=== PATIENT | female | born 1945 | race Caucasian/White ===

== ENCOUNTER 2016-11-28 12:04 | Inpatient (IN) | payer MEDICARE, OTHER ==
--- NOTE | ~2016-11-28 | CN ---
Consultation Report [facility] [address] [place]. [address] NAME: YURIY JONES : 45 STATUS : ADM IN [facility]#: [id number] AGE: 71 ADM/REG DATE : 11/28/16 MR#: [id number] REPORT SERV DATE: 11/29/16 DICTATED BY: PACO ALLEN DATE: 11/29/16 REPORT STATUS : Draft TRANSCRIBED BY: MODL DATE: 11/29/16 CONSULT DATE OF CONSULTATION: 11/28/2016 REASON FOR CONSULTATION: Postoperative critical care management. HISTORY OF PRESENT ILLNESS: The patient is a 71-year-old white female with a past medical history of COPD, anxiety, and depression, who initially presented to [facility] emergency room three days prior to this hospital admission complaining of a couple of days of worsening shortness of breath, right-sided pleuritic chest pain, as well as increasing cough with sputum production. In the emergency room there, she was hypoxic and was admitted to the ICU there for hypoxic respiratory failure. At that time, she underwent a chest CT that showed a moderate right-sided pleural effusion with areas of loculation and atelectasis consistent with at least a complicated parapneumonic effusion. A thoracentesis at that time evacuated approximately 600 mL of cloudy yellow fluid and the patient still had a residual loculated component following this thoracentesis. Cultures from that have grown Streptococcus pneumoniae, and the patient has been treated with Levaquin, Rocephin, and vancomycin since her hospital admission on 11/27/2016. The patient, given the residual loculation, was then transferred here for VATS with decortication, which she underwent earlier today by Dr. Montes De Oca without significant complication. He remarked that he evacuated the hemothorax of pus-like material. The patient developed some atrial fibrillation with rapid ventricular response and is now in CVICU on the ventilator. We are consulted for assistance in critical care management. PAST MEDICAL HISTORY: 1. COPD. 2. Anxiety. 3. Depression. 4. Hypertension. 5. Hyperlipidemia. 6. Gastroesophageal reflux disease. SOCIAL HISTORY: Per the chart, remote history of 40-pack plus year history. No alcohol or IV drug abuse. FAMILY HISTORY: Per the chart, significant for hypertension in her father and lung cancer in mother. ALLERGIES: INCLUDE PENICILLIN. HOME MEDICATIONS: See medication reconciliation form. REVIEW OF SYSTEMS: Consultation Report [facility] [address] [place]. [address] NAME: YURIY JONES : 45 STATUS : ADM IN PAT#: [id number] AGE: 71 ADM/REG DATE : 11/28/16 MR#: [id number] REPORT SERV DATE: 11/29/16 DICTATED BY: PACO ALLEN DATE: 11/29/16 REPORT STATUS : Draft TRANSCRIBED BY: MODL DATE: 11/29/16 Unable to obtain secondary to sedation and intubation. PHYSICAL EXAMINATION: VITAL SIGNS: Temperature 98.6, heart rate 94, respiratory rate 15, blood pressure 107/65. GENERAL: Sedated, intubated. HEENT: Pupils equal, round, and reactive to light. ET tube in place. NECK: Supple. Nontender. No lymphadenopathy. No thyromegaly. No jugular venous distention. LUNGS: Coarse breath sounds bilaterally. CARDIOVASCULAR: Regular rate and rhythm. No murmurs, rubs, or gallops. ABDOMEN: Soft, nontender, nondistended. Positive bowel sounds. No hepatosplenomegaly. EXTREMITIES: No cyanosis, clubbing, or edema. NEUROLOGIC: Alert and oriented x3. Cranial nerves intact. PSYCH: Mood appropriate. LABORATORIES AND IMAGING: Metabolic profile remarkable for glucose of 237. CBC with white count 24,000, hemoglobin 8.8, platelets of 447, 89% neutrophils, and 5% bands. ASSESSMENT AND PLAN: The patient is a 71-year-old female with past medical history of chronic obstructive pulmonary disease, hypertension, and anxiety, who is now postop day #0 from VATS with decortication, now with postoperative respiratory failure and atrial fibrillation with rapid ventricular response. 1. Postoperative respiratory failure. We will assist with ventilator management. I have switched the patient from SIMV to CMV and decreased the tidal volume. We will get a followup ABG in the morning. We will provide daily awakening trials while the patient is on the ventilator. We will provide sedation with Precedex and fentanyl as needed. We will hopefully attempt to wean and extubate in the next 24 to 48 hours. The patient does have a history of chronic obstructive pulmonary disease, so we will place on bronchodilator protocol. No signs of active chronic obstructive pulmonary disease exacerbation at this time. 2. Atrial fibrillation with rapid ventricular response. Currently, the patient has a good blood pressure and is tolerating her atrial fibrillation. We will place on amiodarone drip and get Cardiology to see the patient in the morning. 3. Empyema, now status post VATS with decortication. Routine postsurgical care per the primary team. 4. Appreciate the consult. We will continue to follow along with you. Please call if you have any questions. Total critical care time spent on this patient was 40 minutes. IMANI/PANCHO [place] Consultation Report [address] [address] NAME: YURIY JONES : 45 STATUS : ADM IN [facility]#: [id number] AGE: 71 ADM/REG DATE : 11/28/16 MR#: [id number] REPORT SERV DATE: 11/29/16 DICTATED BY: PACO ALLEN DATE: 11/29/16 REPORT STATUS : Draft TRANSCRIBED BY: PANCHO DATE: 11/29/16 MD Raoul / [id number] CC: Matthew Montes De Oca Jr., M.D.
--- NOTE | ~2016-11-28 | HP ---
History And Physical [address] [place]. [address] NAME: YURIY JONES : 45 STATUS : ADM IN [facility]#: [id number] AGE: 71 ADM/REG DATE : 11/28/16 MR#: [id number] REPORT SERV DATE: 11/28/16 DICTATED BY: MADDIE HAINES JR. DATE: 11/28/16 REPORT STATUS : Draft TRANSCRIBED BY: MODL DATE: 11/28/16 DATE OF ADMISSION: 11/28/2016 BRIEF HISTORY: This is a 71-year-old white female, who presented to [facility] Emergency Department on Sunday afternoon after several days of shortness of breath, right-sided chest discomfort with pleuritic type pain as well as a cough. In the emergency department, she was noted to be profoundly hypoxic and was transferred to the ICU. She underwent a CT of the chest, which demonstrated a moderate right-sided pleural effusion with a loculated component in the major and minor fissures of the right chest with associated bands of atelectasis. Cultures demonstrated this to be a strep pneumonia. The patient was placed on Levaquin, Rocephin, and vancomycin. She underwent a thoracentesis on 11/27/2016, where 600 mL of cloudy yellow fluid was drained with a residual loculated component following the procedure. Given the cultures and the patient's continued loculated component, we are asked to receive transfer of her for right thoracoscopy with decortication. PAST MEDICAL HISTORY: Significant for COPD, anxiety, depression, hypertension, hyperlipidemia, and GERD. SOCIAL HISTORY: Significant for previous tobacco use. She quit smoking approximately 15 years ago, but has a 40 pack-year history. She denies any alcohol or illicit drug use. SURGICAL HISTORY: Significant for hysterectomy. FAMILY HISTORY: Significant for father with hypertension and mother with history of lung cancer. ALLERGIES: TO MEDICATIONS INCLUDE PENICILLIN. HOME MEDICATIONS: Include atorvastatin 20 mg 1 p.o. daily, BuSpar 15 mg b.i.d., Cymbalta 90 mg daily, lisinopril 10 mg daily, omeprazole 40 mg daily. REVIEW OF SYSTEMS: Significant for shortness of breath and right-sided pleuritic pain. A complete 12-point review of systems was performed. All other systems are negative except for the above- mentioned pertinent positives in the history of present illness. PHYSICAL EXAMINATION: GENERAL: This is a 71-year-old white female, who is alert and oriented, in no acute distress. VITAL SIGNS: Afebrile, heart rate 110, blood pressure 136/78, oxygen saturation 88%. Weight 70 kg. HEENT: Normocephalic and atraumatic. Pupils equal, round, reactive to light. Ears, nose, and throat without lesions or exudate. NECK: Supple with no lymphadenopathy, JVD, or bruits. Trachea midline. No obvious goiter. CHEST: Symmetrical with no chest wall deformities. CARDIOVASCULAR: Regular rate and rhythm. S1, S2. No murmurs, rubs, or gallops. History And Physical [address] [address] NAME: YURIY JONES : 45 STATUS : ADM IN [facility]#: [id number] AGE: 71 ADM/REG DATE : 11/28/16 MR#: [id number] REPORT SERV DATE: 11/28/16 DICTATED BY: MADDIE HAINES JR. DATE: 11/28/16 REPORT STATUS : Draft TRANSCRIBED BY: PANCHO DATE: 11/28/16 RESPIRATORY: Decreased breath sounds bilaterally greater on the right. Expiratory wheezes. ABDOMEN: Soft, nontender, nondistended. Positive bowel sounds in all four quadrants. No hepatosplenomegaly. : The patient voids without difficulty. Further examination was deferred. MUSCULOSKELETAL: No obvious kyphosis or scoliosis. EXTREMITIES: No cyanosis or edema. 2+ pulses bilaterally. NEUROLOGIC: No focal neurological deficits. PSYCHIATRIC: Normal mood and affect. She is pleasant. DATA: CT of the chest dated 11/25/2016, showing a small to moderate right-sided pleural effusion with loculated component within the major and minor fissures and associated bands of atelectasis. There is minimal fluid within the left lung, large hiatal hernia, and the thoracic esophagus is dilated. Laboratories dated 11/27/2016, sodium 137, potassium 3.9, BUN 26, creatinine 0.77, glucose 84. Thoracentesis dated 11/27/2016, 600 mL of cloudy yellow fluid was drained from the right chest. PROBLEM LIST: 1. Right empyema positive for strep pneumonia. 2. COPD. 3. Hypoxemia. 4. Atrial fibrillation. 5. Hypertension. 6. Hyperlipidemia. 7. Anxiety and depression. 8. Gastroesophageal reflux disease. 9. History of tobacco abuse. IMPRESSION AND PLAN: This is a 71-year-old white female with a right empyema status post thoracentesis on 11/27/2016, and she remained hypoxic and recently converted to atrial fibrillation. We will go ahead and plan for right thoracoscopy as decortication occurred this afternoon. We discussed the plan with the patient. We discussed the risks, benefits, and expected outcomes of the above-mentioned procedure. She verbalized understanding of all that we discussed and we will proceed on as outlined above this afternoon. DICTATED BY: Jyoti Durbin NP AM/PANCHO Maddie Haines Jr., M.D. / [id number] CC: Maddie Haines Jr., M.D.
--- NOTE | ~2016-11-28 | OP ---
Record Of Operation [facility] [address] [place]. [address] NAME: YURIY JONES : 45 STATUS : ADM IN [facility]#: [id number] AGE: 71 ADM/REG DATE : 11/28/16 MR#: [id number] REPORT SERV DATE: 11/29/16 DICTATED BY: MADDIE MONTES DE OCA JR. DATE: 11/28/16 REPORT STATUS : Draft TRANSCRIBED BY: MODDaniel DATE: 11/28/16 DATE OF PROCEDURE: 11/28/2016 PREOPERATIVE DIAGNOSES: Streptococcal pneumonia with right empyema, anemia of chronic disease, large hiatal hernia with gastroesophageal reflux disease, hypertension, chronic obstructive pulmonary disease, atrial fibrillation. POSTOPERATIVE DIAGNOSES: Streptococcal pneumonia with right empyema, anemia of chronic disease, large hiatal hernia with gastroesophageal reflux disease, hypertension, chronic obstructive pulmonary disease. NAME OF OPERATION: Bronchoscopy, right thoracoscopy with complete decortication, intercostal nerve block. SURGEON: Maddie Montes De Oca M.D. RESIDENT SURGEON: Gentry Rivera. ASSIST: Armando Matos. ANESTHESIA: General endotracheal. FINDINGS: The patient was noted to have mucus secretions and plugs within her airway. There was obviously a pneumonia with purulent material coming from the right lung. Chest had a loculated empyema with a lot of purulent material within the chest cavity. It required a complete decortication. We were able to get the lung fully re-expanded. Cultures were sent. DETAILS OF OPERATION: After adequate general anesthesia, the patient was intubated. A bronchoscopy was performed noting no contraindication of resection. Mucus secretions were evacuated. A left-sided double-lumen endotracheal tube was then placed. She was then positioned in the left lateral decubitus position. The right chest was prepped and draped in the usual sterile fashion. A small incision was made overlying the lower intercostal space. Through a single incision site, the above findings were noted. The fluid was evacuated. The loculations were broken up. Decortication was then performed completing decortication in all three lobes. The fissures were and opened up. The purulent material in the chest wall was also debrided. The chest was then thoroughly irrigated with multiple liters of normal saline solution. An intercostal nerve block was then performed. Two straight 32-Vietnamese chest tubes were placed. The lung was reinflated. There was good reexpansion of the lung tissue. The single trocar site was closed with running Vicryl sutures. The skin was closed with running monofilament suture. A Dermabond dressing was applied and the procedure was terminated at this point. The patient tolerated the procedure well and taken back to intensive care unit intubated, but in stable condition. Record Of Operation [address] [place]. [address] NAME: YURIY JONES : 45 STATUS : ADM IN [facility]#: [id number] AGE: 71 ADM/REG DATE : 11/28/16 MR#: [id number] REPORT SERV DATE: 11/29/16 DICTATED BY: MADDIE MONTES DE OCA JR. DATE: 11/28/16 REPORT STATUS : Draft TRANSCRIBED BY: PANCHO DATE: 11/28/16 RADHA/PANCHO Maddie Montes De Oca Jr., M.D. / [id number] CC: Payal Bryant Jr., M.D.
--- NOTE | ~2016-11-28 | DS ---
Discharge Summary [facility] [address] [place]. [address] NAME: YURIY JONES : 45 STATUS : DIS IN PAT#: [id number] AGE: 71 ADM/REG DATE : 11/28/16 MR#: [id number] REPORT SERV DATE: 12/15/16 DICTATED BY: MADDIE MONTES DE OCA JR. DATE: 12/14/16 REPORT STATUS : Draft TRANSCRIBED BY: PANCHO DATE: 12/14/16 Data Collection from hospitalization DISCHARGE DIAGNOSIS(ES): 1. Streptococcal pneumonia with right empyema. 2. Anemia of chronic disease. 3. Large hiatal hernia. 4. Gastroesophageal reflux disease. 5. Hypertension. 6. Chronic obstructive pulmonary disease. 7. Anxiety and depression. 8. Former smoker. 9. Hyperlipidemia. 10.Anxiety and depression. CONSULTATIONS: Dr. Jaleel Silveira. PROCEDURES PERFORMED: Bronchoscopy, right thoracoscopy with complete decortication and intercostal nerve block, 11/28/2016. PATHOLOGY: Right pleural fluid thoracentesis (smears, ThinPrep, and cell block) - acute pleuritis, no malignant cells identified. MEDICATIONS: Fosamax 70 mg every seven days, Cordarone 200 mg twice a day, Lipitor 20 mg daily, Hard Nails one capsule daily, BuSpar 15 mg twice a day, Cymbalta 90 mg every evening, Levaquin 750 mg daily, Prinivil 10 mg daily, Lopressor 25 mg twice a day, Prilosec 20 mg daily, Percocet 5/325 one to two tablets every four hours as needed, Xarelto 20 mg daily, and vitamin D one tablet daily. CONDITION AT DISCHARGE: Stable. DISPOSITION: The patient was discharged home on a regular diet with activities as instructed. She would follow up with in 12/25/2016. She would follow up with Dr. Daniel as instructed. HOSPITAL COURSE: This is a 71-year-old female who had presented to an outside emergency department on Sunday afternoon prior to this admission after several days of shortness of breath and right-sided chest discomfort with pleuritic type pain as well as a cough. In the emergency department, she was found to be profoundly hypoxic and was transferred to the ICU. A CT scan of the chest had demonstrated a moderate right-sided pleural effusion with loculated component in the major and minor fissures of the right chest with associated bands of atelectasis. Cultures demonstrated this to be strep pneumonia. The patient was placed on Levaquin, Rocephin, and vancomycin. She underwent thoracentesis on 11/27/2016 where 600 mL of cloudy yellow fluid was drained with a residual loculated component following the procedure. Given the cultures and the patient's continued loculated component, we were asked to receive the patient in transfer for right thoracoscopy with decortication. She was admitted at this time for further evaluation and treatment. Discharge Summary [address] [address] NAME: YURIY JONES : 45 STATUS : DIS IN PAT#: [id number] AGE: 71 ADM/REG DATE : 11/28/16 MR#: [id number] REPORT SERV DATE: 12/15/16 DICTATED BY: MADDIE MONTES DE OCA JR. DATE: 12/14/16 REPORT STATUS : Draft TRANSCRIBED BY: PANCHO DATE: 12/14/16 Upon admission, she was taken to the operating room where she underwent the above-mentioned procedure. She tolerated this well, and there were no complications. On postop day #1, she was seen by Dr. Jaleel Silveira regarding postoperative critical care management. The patient developed some atrial fibrillation with rapid ventricular response and was now on the Cardiovascular ICU on the ventilator. The patient was felt to have postoperative respiratory failure. The patient was switched from SIMV to CMV and decreased tidal volume. Followup ABGs would be obtained the following morning. Daily awakening trials would be performed while patient was on the ventilator. Sedation would be provided with Precedex and fentanyl as needed. The patient does have a history of chronic obstructive pulmonary disease and was going to be placed on bronchodilator protocol. There were no signs of active chronic obstructive pulmonary disease exacerbation at this time. The patient apparently had good blood pressure and was tolerating her atrial fibrillation. She was placed on amiodarone drip. On the , O2 saturation was 97% on 4 L. She was still on atrial fibrillation. Her pain was controlled. Chest x-ray showed vascular congestion and atelectasis in the right base which was improving. White count was 19. Pathology results were pending. IV amiodarone was discontinued. Lopressor was increased. O2 was being weaned. Discharge planning was performed. Chest tube was removed. On 12/01/2016, discharge instructions were given. Due to her improved and stable condition, she was discharged home with the above-stated instructions. Information collected by: Asia Harmon I submit the above information as my discharge summary. MEJIA/PANCHO Maddie Montes De Oca Jr., M.D. / [id number] CC: Payal Bryant Jr., III, D.O.
[2016-11-28] MEDS ORDERED: ASAB PO (13:02)
[2016-11-28] MEDS ORDERED: LIPITOR40 PO (13:03)
[2016-11-28] MEDS ORDERED: TEG200 (13:05)
[2016-11-28] MEDS ORDERED: VITAMIN D31000 UNIT PO (13:06)
[2016-11-28] MEDS ORDERED: COREG3 PO (13:06)
[2016-11-28] MEDS ORDERED: PROMEGA PO (13:07)
[2016-11-28] MEDS ORDERED: EFFIENT10 PO (13:08)
[2016-11-28] MEDS ORDERED: TEGRETOL XR400 MG PO (13:09)
[2016-11-28 13:35] LABS: HEMOGLOBIN 9.2 g/dL (12.0-16.0); MANUAL DIFF YES %; MEAN CORPUS HGB CONC 31.7 g/dL (32.0-36.0); MEAN CORPUSCULAR HEMOGLOB 25.5 pg (26.0-34.0); MEAN CORPUSCULAR VOLUME 80.3 fL (80-100); PLATELET COUNT 508 10/3/uL (150-400); RBC DISTRIBUTION WIDTH 19.4 % (12.0-16.0); RED CELL COUNT 3.61 10/6/uL (4.0-5.6); WHITE BLOOD CELLS 30.8 10/3/uL (4.5-10.5)
[2016-11-28 13:43] LABS: INTERNATIONAL NORMAL RATI 1.2 UNITS (-); PROTIME (NOT ORD) 14.9 SEC (12.0-14.5)
[2016-11-28 13:44] LABS: PARTIAL THROMBO TIME 40.6 SEC (22.5-37.2)
[2016-11-28 13:46] LABS: CALCIUM, SERUM 8.3 MG/DL (8.5-10.4); CHLORIDE, SERUM 108 MMOL/L (96-112); POTASSIUM, SERUM 3.8 MMOL/L (3.5-5.3); SODIUM, SERUM 143 MMOL/L (135-148)
[2016-11-28 13:47] LABS: BUN (BLOOD UREA NITROGEN) 26 MG/DL (6-23); CO2 (CARBON DIOXIDE) 21 MMOL/L (24-34); CREATININE 0.77 MG/DL (0.55-1.02); GFR AFRICAN AMERICAN 90 ML/MIN (>=60); GFR NON AFRICAN AMERICAN 78 ML/MIN (>=60); GLUCOSE, SERUM 129 MG/DL (60-99)
[2016-11-28 13:52] LABS: BAND NEUTROPHILS 10 %; LYMPHOCYTES 4 %; LYMPHOCYTES ABSOLUTE (CALC) 1.23 10/3/uL (0.67-4.30); MONOCYTES 3 %; MONOCYTES ABSOLUTE (CALC) 0.92 10/3/uL (0.21-1.20); NEUTROPHILS ABSOLUTE (CALC) 28.64 10/3/uL (2.02-8.40); SEGMENTED NEUTROPHIL (0) 83 %; TOTAL NUCLEATED CELLS 100
[2016-11-28 13:53] LABS: ANISOCYTOSIS 1+ (5-10/OIF) (0-5/OIF); BURR CELLS 1+ (3-10/OIF) (0-2/OIF); HYPOCHROMIA 1+ (3-10/OIF) (0-2/OIF); PLATELET ESTIMATE SLT INC (ADEQUATE)
[2016-11-28 13:54] LABS: ELLIPTOCYTES 1+ (3-10/OIF) (0-2/OIF); MICROCYTES 1+ (5-10/OIF) (0-5/OIF)
[2016-11-28] MEDS ORDERED: LIPITOR20 PO (16:01)
[2016-11-28] MEDS ORDERED: PRILO PO (16:01)
[2016-11-28] MEDS ORDERED: BUSPAR15 M1 PO (16:01)
[2016-11-28] MEDS ORDERED: PRIN10 PO (16:01)
[2016-11-28] MEDS ORDERED: VITAMIN D PO (16:02)
[2016-11-28] MEDS ORDERED: CYMBALTA30 PO (16:02)
[2016-11-28] MEDS ORDERED: FOSAMAX70 MG PO (16:02)
[2016-11-28] MEDS ORDERED: HARD NAILS PO (16:02)
[2016-11-28 21:01] LABS: BE (BASE EXCESS) -7.9 MEQ/L (0 +/- 2.5); CARBOXYHEMOGLOBIN 0.3 % (0-3); HCO3 (ACTUAL BICARBONATE) 18.1 MEQ/L (23-27); HEMOBLOGIN CONTENT 9.4 G/DL (12-16); INSTRUMENT SERIAL # 11843; METHEMOGLOBIN 0.6 % (0-3); MODE CMV; O2 CONTENT 13.5 VOL% (18-24); OPERATOR ID 16469; PCO2 (CO2 TENSION) 39 MMHG (35-45); PO2 (O2 TENSION) 216 MMHG (79-93); SAMPLE Arterial; TIDAL VOLUME 600 ML; pH 7.29 (7.37-7.43)
[2016-11-28 22:29] LABS: CALCIUM, SERUM 7.5 MG/DL (8.5-10.4); CHLORIDE, SERUM 111 MMOL/L (96-112); CO2 (CARBON DIOXIDE) 23 MMOL/L (24-34); CREATININE 0.82 MG/DL (0.55-1.02); GFR AFRICAN AMERICAN 83 ML/MIN (>=60); GFR NON AFRICAN AMERICAN 72 ML/MIN (>=60); SODIUM, SERUM 144 MMOL/L (135-148)
[2016-11-28 22:31] LABS: BUN (BLOOD UREA NITROGEN) 31 MG/DL (6-23); GLUCOSE, SERUM 237 MG/DL (60-99); POTASSIUM, SERUM 4.6 MMOL/L (3.5-5.3)
[2016-11-28 22:32] LABS: HEMATOCRIT 28.1 % (36.0-48.0); HEMOGLOBIN 8.8 g/dL (12.0-16.0); MEAN CORPUS HGB CONC 31.3 g/dL (32.0-36.0); MEAN CORPUSCULAR HEMOGLOB 24.9 pg (26.0-34.0); MEAN CORPUSCULAR VOLUME 79.4 fL (80-100); MEAN PLATELET VOLUME 10.5 fL (9.2-13.0); NUCLEATED RED BLOOD CELLS 0.2 /100WBC (0-0); PLATELET COUNT 447 10/3/uL (150-400); RBC DISTRIBUTION WIDTH 19.4 % (12.0-16.0); RED CELL COUNT 3.54 10/6/uL (4.0-5.6); WHITE BLOOD CELLS 24.3 10/3/uL (4.5-10.5)
[2016-11-28 22:33] LABS: MANUAL DIFF YES %
[2016-11-28 22:41] LABS: ANISOCYTOSIS 1+ (5-10/OIF) (0-5/OIF); BAND NEUTROPHILS 5 %; BURR CELLS 1+ (3-10/OIF) (0-2/OIF); MONOCYTES 6 %; MONOCYTES ABSOLUTE (CALC) 1.46 10/3/uL (0.21-1.20); NEUTROPHILS ABSOLUTE (CALC) 22.84 10/3/uL (2.02-8.40); PLATELET ESTIMATE SLT INC (ADEQUATE); SEGMENTED NEUTROPHIL (0) 89 %; TOTAL NUCLEATED CELLS 100
[2016-11-28 22:42] LABS: HYPOCHROMIA 1+ (3-10/OIF) (0-2/OIF)
[2016-11-29 03:58] LABS: ALLENS TEST Pos; CARBOXYHEMOGLOBIN 0.3 % (0-3); HCO3 (ACTUAL BICARBONATE) 21.8 MEQ/L (23-27); HEMOBLOGIN CONTENT 7.5 G/DL (12-16); INSTRUMENT SERIAL # 11843; METHEMOGLOBIN 0.7 % (0-3); MODE CMV; O2 CONTENT 10.5 VOL% (18-24); OPERATOR ID 32193; PCO2 (CO2 TENSION) 37 MMHG (35-45); PO2 (O2 TENSION) 116 MMHG (79-93); SAMPLE Arterial; TIDAL VOLUME 600 ML; pH 7.39 (7.37-7.43)
[2016-11-29 06:22] LABS: HEMATOCRIT 23.1 % (36.0-48.0); HEMOGLOBIN 7.4 g/dL (12.0-16.0); MANUAL DIFF YES %; MEAN CORPUSCULAR HEMOGLOB 25.6 pg (26.0-34.0); MEAN CORPUSCULAR VOLUME 79.9 fL (80-100); MEAN PLATELET VOLUME 9.9 fL (9.2-13.0); PLATELET COUNT 319 10/3/uL (150-400); RBC DISTRIBUTION WIDTH 19.5 % (12.0-16.0); RED CELL COUNT 2.89 10/6/uL (4.0-5.6); WHITE BLOOD CELLS 10.1 10/3/uL (4.5-10.5)
[2016-11-29 06:40] LABS: CALCIUM, SERUM 7.5 MG/DL (8.5-10.4); CHLORIDE, SERUM 110 MMOL/L (96-112); CO2 (CARBON DIOXIDE) 24 MMOL/L (24-34); CREATININE 1.08 MG/DL (0.55-1.02); GFR AFRICAN AMERICAN 60 ML/MIN (>=60); GFR NON AFRICAN AMERICAN 52 ML/MIN (>=60); GLUCOSE, SERUM 255 MG/DL (60-99); PHOSPHORUS, SERUM 2.2 MG/DL (2.5-4.5); SODIUM, SERUM 141 MMOL/L (135-148)
[2016-11-29 06:43] LABS: ANISOCYTOSIS 1+ (5-10/OIF) (0-5/OIF); BAND NEUTROPHILS 3 %; LYMPHOCYTES 6 %; LYMPHOCYTES ABSOLUTE (CALC) 0.61 10/3/uL (0.67-4.30); MONOCYTES 5 %; MONOCYTES ABSOLUTE (CALC) 0.51 10/3/uL (0.21-1.20); NEUTROPHILS ABSOLUTE (CALC) 8.99 10/3/uL (2.02-8.40); PLATELET ESTIMATE ADQ (ADEQUATE); SEGMENTED NEUTROPHIL (0) 86 %; TOTAL NUCLEATED CELLS 100
[2016-11-29 06:49] LABS: BUN (BLOOD UREA NITROGEN) 38 MG/DL (6-23)
[2016-11-29 09:14] LABS: ALLENS TEST Pos; BE (BASE EXCESS) -2.3 MEQ/L (0 +/- 2.5); CARBOXYHEMOGLOBIN 0.2 % (0-3); DEVICE NC; HCO3 (ACTUAL BICARBONATE) 22.8 MEQ/L (23-27); HEMOBLOGIN CONTENT 8.2 G/DL (12-16); INSTRUMENT SERIAL # 11843; METHEMOGLOBIN 0.6 % (0-3); O2 CONTENT 10.9 VOL% (18-24); OPERATOR ID 13715; PCO2 (CO2 TENSION) 40 MMHG (35-45); PO2 (O2 TENSION) 77 MMHG (79-93); SAMPLE Arterial; pH 7.37 (7.37-7.43)
[2016-11-30 05:02] LABS: MEAN CORPUS HGB CONC 31.6 g/dL (32.0-36.0); MEAN CORPUSCULAR VOLUME 82.1 fL (80-100); MEAN PLATELET VOLUME 9.9 fL (9.2-13.0); NUCLEATED RED BLOOD CELLS 0.2 /100WBC (0-0); RBC DISTRIBUTION WIDTH 19.9 % (12.0-16.0)
[2016-11-30 05:04] LABS: HEMATOCRIT 29.4 % (36.0-48.0); HEMOGLOBIN 9.3 g/dL (12.0-16.0); PLATELET COUNT 570 10/3/uL (150-400); RED CELL COUNT 3.58 10/6/uL (4.0-5.6)
[2016-11-30 05:06] LABS: MANUAL DIFF YES %
[2016-11-30 05:07] LABS: CHLORIDE, SERUM 107 MMOL/L (96-112); CO2 (CARBON DIOXIDE) 23 MMOL/L (24-34); CREATININE 1.07 MG/DL (0.55-1.02); GFR AFRICAN AMERICAN 60 ML/MIN (>=60); GFR NON AFRICAN AMERICAN 52 ML/MIN (>=60); PHOSPHORUS, SERUM 2.8 MG/DL (2.5-4.5); POTASSIUM, SERUM 4.4 MMOL/L (3.5-5.3); SODIUM, SERUM 137 MMOL/L (135-148)
[2016-11-30 05:08] LABS: BUN (BLOOD UREA NITROGEN) 33 MG/DL (6-23); GLUCOSE, SERUM 161 MG/DL (60-99)
[2016-11-30 05:13] LABS: ANISOCYTOSIS 1+ (5-10/OIF) (0-5/OIF); BAND NEUTROPHILS 10 %; HYPOCHROMIA 1+ (3-10/OIF) (0-2/OIF); IMMATURE GRANS ABSOLUTE (CALC) 0.57 10/3/uL (0.0-0.11); LYMPHOCYTES 6 %; LYMPHOCYTES ABSOLUTE (CALC) 1.14 10/3/uL (0.67-4.30); METAMYELOCYTES 3 %; MONOCYTES 5 %; MONOCYTES ABSOLUTE (CALC) 0.95 10/3/uL (0.21-1.20); NEUTROPHILS ABSOLUTE (CALC) 16.34 10/3/uL (2.02-8.40); PLATELET ESTIMATE SLT INC (ADEQUATE); SEGMENTED NEUTROPHIL (0) 76 %; TOTAL NUCLEATED CELLS 100
[2016-11-30 05:14] LABS: MICROCYTES 1+ (5-10/OIF) (0-5/OIF)
[2016-12-01] MEDS ORDERED: LEVAQUIN750 MG PO (09:14)
[2016-12-01] MEDS ORDERED: XARELTO20 MG PO (09:14)
[2016-12-01] MEDS ORDERED: CORDARONE PO (09:15)
[2016-12-01] MEDS ORDERED: LOP25 PO (09:15)
[2016-12-01] MEDS ORDERED: PCET PO (09:15)
== END 2016-12-01 13:33 | disposition home or self-care (01) | DRG 163 ==
LOC: CCU 12:04 → SDC/OF 18:39 → CVICU 20:58 → 5NO 11-29 18:06
PROVIDERS: Thoracic Surgery (Cardiothoracic Vascular Surgery)
PROC: 3E0T3BZ Introduction of Anesthetic Agent into Peripheral Nerves and Plexi, Percutaneous Approach (ICD-10-PCS; 2016-11-28)
PROC: 0BDN4ZZ Extraction of Right Pleura, Percutaneous Endoscopic Approach (ICD-10-PCS; principal; 2016-11-28 16:15)
DX: J86.9 Pyothorax without fistula (principal); J15.4 Pneumonia due to other streptococci; J95.821 Acute postprocedural respiratory failure; J44.9 Chronic obstructive pulmonary disease, unspecified; I48.91 Unspecified atrial fibrillation; D63.8 Anemia in other chronic diseases classified elsewhere; K44.9 Diaphragmatic hernia without obstruction or gangrene; K21.9 Gastro-esophageal reflux disease without esophagitis; F32.9 Major depressive disorder, single episode, unspecified; I10 Essential (primary) hypertension; F41.9 Anxiety disorder, unspecified; Z88.0 Allergy status to penicillin
CPT/HCPCS: 31720; 36415; 36600; 71010; 71020; 80048; 80202; 82330; 82805; 82962; 83735; 84100; 85025; 85610; 85730; 86850; 86900; 86901; 87015; 87070; 87075; 87102; 87116; 87205; 87641; 88112; 88305; 94002; 94003; 94640; 94660; 94770; A9270-GY; C9113; J0282; J1160; J1956; J2250; J2370; J2405; J2795; J3010; J3370